=== PATIENT | female | born 1955 | race Caucasian/White ===

== ENCOUNTER 2021-02-07 16:08 | Observation (INO) | payer OTHER ==
[2021-02-07] MEDS ORDERED: Sodium Chloride 0.9% 10 ML Syringe FLUSH PRN (16:27)
[2021-02-07] MEDS ORDERED: Sodium Chloride 0.9% 1,000 ML IV ONE (16:34)
--- NOTE | 2021-02-07 17:00 | EDM.PDOC ---
ED HPI GENERAL MEDICAL PROBLEM - General Chief Complaint: Gastrointestinal Problem Stated Complaint: RLQ PAIN Time Seen by Provider: 02/07/21 16:30 Source of Information: Reports: Patient History Limitations: Reports: No Limitations - History of Present Illness INITIAL COMMENTS - FREE TEXT/NARRATIVE: 65 YO WF PRESENTS TO ER WITH COMPLAINTS OF CONSTIPATION X 3 DAYS. PT REPORTS T RAJ SHE DEVELOPED SOME RLQ ABDOMINAL PAIN PROMPTING ER EVALUATION. PT REPORTS SHE TYPICALLY TAKES MIRALAX FOR HER CONSTIPATION DAILY BUT CAN'T REMEMBER IF SHE TOOK IT THE LAST FEW DAYS. PT REPORTS SHE TOOK MAGNESIUM CITRATE TODAY AND PROCEEDED TO VOMIT. PT REPORTS DECREASED APPETITE. PT DENIES FEVER/CHILLS, NO DIARRHEA OR BLOODY STOOLS, NO DYSURIA OR URINARY FREQUENCY/URGENCY. PT REPORTS NO BOWEL MOVEMENT X 2-3 DAYS. PT REPORTS PASSING GAS AND INCREASED BURPING OVER THE LAST FEW DAYS. Duration: Day(s): (3) Location: Reports: Abdomen Quality: Reports: Ache, Pressure Severity: Mild Improves with: Reports: None Worsens with: Reports: None Associated Symptoms: Reports: Nausea/Vomiting. Denies: Chest Pain, Diaphoresis, Fever/Chills, Malaise, Shortness of Breath, Syncope, Weakness Treatments SAW MAN: Reports: Other (see below) Other Treatments SAW MAN: stool softeners right lower side Pain Score (Numeric/FACES): 4 - Related Data Allergies Allergy/AdvReac Type Severity Reaction Status Date / Time No Known Drug Allergies Allergy NKDA Verified 02/07/21 16:35 Home Meds: Home Meds Calcium Carbonate [Calcium] 600 mg PO DAILY 04/21/15 [History] Ketotifen Fumarate [Allergy Eye Drops] 1 drop EYEBOTH ASDIRECTED 04/21/15 [History] Levothyroxine Sodium [Synthroid] 100 mcg PO ACBREAKFAST 04/21/15 [History] Multivitamin [Daily Multiple Vitamin] 1 tab PO DAILY 04/21/15 [History] ED ROS GENERAL - Review of Systems Review Of Systems: See Below Constitutional: Reports: No Symptoms HEENT: Reports: No Symptoms Respiratory: Reports: No Symptoms Cardiovascular: Reports: No Symptoms Endocrine: Reports: No Symptoms GI/Abdominal: Reports: Abdominal Pain, Constipation, Nausea, Vomiting : Reports: No Symptoms Musculoskeletal: Reports: No Symptoms Skin: Reports: No Symptoms Neurological: Reports: No Symptoms Psychiatric: Reports: No Symptoms Hematologic/Lymphatic: Reports: No Symptoms Immunologic: Reports: No Symptoms ED EXAM, GI/ABD - Physical Exam Exam: See Below Exam Limited By: No Limitations General Appearance: Alert, WD/WN, No Apparent Distress Head: Atraumatic, Normocephalic Neck: Normal Inspection, Supple, Non-Tender, Full Range of Motion Respiratory/Chest: No Respiratory Distress, Lungs Clear, Normal Breath Sounds, No Accessory Muscle Use, Chest Non-Tender Cardiovascular: Normal Peripheral Pulses, Regular Rate, Rhythm, No Edema, No Gallop, No JVD, No Murmur, No Rub GI/Abdominal Exam: Normal Bowel Sounds, Soft, No Organomegaly, No Distention, No Abnormal Bruit, No Mass, Pelvis Stable, Tender (RLQ TENDERNESS) Back Exam: Normal Inspection, Full Range of Motion, NT Extremities: Normal Inspection, Normal Range of Motion, Non-Tender, Normal Capillary Refill, No Pedal Edema Neurological: Alert, Oriented, CN II-XII Intact, Normal Cognition, Normal Gait, No Motor/Sensory Deficits Psychiatric: Normal Affect, Normal Mood Skin Exam: Warm, Dry, Intact, Normal Color, No Rash Lymphatic: No Adenopathy Course - Vital Signs Last Recorded V/S: Last Vital Signs Temp 97.2 F 02/07/21 17:38 Pulse 60 02/07/21 17:38 Resp 16 02/07/21 17:38 BP 138/66 02/07/21 17:38 Pulse Ox 98 02/07/21 17:38 - Orders/Labs/Meds Orders: Active Orders 24 hr Category Date Time Status Peripheral IV Care [RC] . DIRECTED Care 02/07/21 16:28 Active Sodium Chloride 0.9% [Normal Saline] 50 ml Med 02/07/21 17:15 Active IV ASDIRECTED Sodium Chloride 0.9% [Saline Flush] Med 02/07/21 16:27 Active 10 ml FLUSH Q8HR PRN Peripheral IV Insertion Adult [OM.PC] Routine Oth 02/07/21 16:27 Ordered Medication Orders Sodium Chloride (Normal Saline) 50 mls @ 200 mls/hr IV ASDIRECTED [facility] Last Admin: 02/07/21 17:18 Dose: 200 mls/hr Documented by: Sodium Chloride (Sodium Chloride 0.9% 10 Ml Syringe) 10 ml FLUSH Q8HR PRN PRN Reason: keep vein open Labs: Laboratory Tests 02/07/21 02/07/21 02/07/21 Range/Units 16:48 16:48 16:52 WBC 10.74 H (5.00-10.00) 10^3/uL RBC 4.49 (3.80-5.50) 10^6/uL Hgb 13.8 (12.0-16.0) g/dL Hct 42.4 (37.0-47.0) % MCV 94.4 H (82.0-92.0) fL MCH 30.7 (27.0-31.0) pg MCHC 32.5 (32.0-36.0) g/dL RDW 12.3 (11.5-14.5) % Plt Count 183 (150-400) 10^3/uL MPV 10.4 (7.4-10.4) fL Immature Gran % (Auto) 0.1 (0.0-5.0) % Neut % (Auto) 86.8 H (50.0-70.0) % Lymph % (Auto) 6.5 L (20.0-40.0) % Harmon % (Auto) 6.5 (2.0-8.0) % Eos % (Auto) 0.0 L (1.0-3.0) % Baso % (Auto) 0.1 (0.0-1.0) % Neut # (Auto) 9.32 H (2.50-7.00) 10^3/uL Lymph # (Auto) 0.70 L (1.00-4.00) 10^3/uL Harmon # (Auto) 0.70 (0.10-0.80) 10^3/uL Eos # (Auto) 0.00 L (0.10-0.30) 10^3/uL Baso # (Auto) 0.01 (0.00-0.10) 10^3/uL Immature Gran # (Auto) 0.01 (0.00-0.50) 10^3/uL Sodium 125 L (136-145) mmol/L Potassium 3.4 L (3.5-5.1) mmol/L Chloride 100 (98-107) mmol/L Carbon Dioxide 26.4 (21.0-32.0) mmol/L Anion Gap 2.0 L (5-15) mmol/L BUN 26 H (7-18) mg/dL Creatinine 0.82 (0.51-1.17) mg/dL Est Cr Clr Drug Dosing 67.59 mL/min Estimated GFR (MDRD) > 60 mL/min Glucose 109 (70-140) mg/dL Calcium 9.0 (8.7-10.3) mg/dL Total Bilirubin 0.9 (0.2-1.0) mg/dL AST 41 H (15-37) U/L ALT 33 (14-63) U/L Alkaline Phosphatase 87 (46-116) U/L Total Protein 7.6 (6.4-8.2) g/dL Albumin 4.18 (3.40-5.00) g/dL Lipase 59 L (73-393) U/L Specimen Type Urinvoid Urine Color Yellow (YELLOW) Urine Appearance Slightly cloudy H (CLEAR) Urine pH 6.0 (5.0-9.0) Ur Specific [place] 1.020 (1.005-1.030) Urine Protein Trace H (NEGATIVE) mg/dL Urine Glucose (UA) Negative (NEGATIVE) mg/dL Urine Ketones 40 H (NEGATIVE) mg/dL Urine Occult Blood Moderate H (NEGATIVE) Urine Nitrite Negative (NEGATIVE) Urine Bilirubin Negative (NEGATIVE) Urine Urobilinogen 0.2 (0.2-1.0) E.U./dL Ur Leukocyte Esterase Small H (NEGATIVE) Urine RBC 5-10 H (0-5) /HPF Urine WBC 50-75 H (0-5) /HPF Ur Epithelial Cells Few /LPF Urine Bacteria Few (NONE TO FEW) /HPF Meds: Medications Generic Name Dose Route Start Last Admin Trade Name Freq PRN Reason Stop Dose Admin Sodium Chloride 50 mls @ 200 mls/hr 02/07/21 17:15 02/07/21 17:18 Normal Saline IV 200 mls/hr ASDIRECTED KEI Administration Sodium Chloride 10 ml 02/07/21 16:27 Sodium Chloride 0.9% 10 Ml Syringe FLUSH Q8HR PRN keep vein open Discontinued Medications Generic Name Dose Route Start Last Admin Trade Name Freq PRN Reason Stop Dose Admin Sodium Chloride 1,000 mls @ 999 mls/hr 02/07/21 16:34 02/07/21 16:54 Normal Saline IV 02/07/21 17:34 999 mls/hr .BOLUS ONE Administration Iopamidol 75 ml 02/07/21 17:10 02/07/21 17:18 Iopamidol 755 Mg/Ml 75 Ml Bottle IVPUSH 02/07/21 17:11 75 ml ONETIME ONE Administration Ondansetron HCl Confirm 02/07/21 17:45 02/07/21 17:51 Ondansetron 4 Mg/2 Ml Sdv Administered 02/07/21 17:46 Not Given Dose 4 mg .ROUTE .STK-MED ONE Ondansetron HCl 4 mg 02/07/21 17:50 02/07/21 17:51 Ondansetron 4 Mg/2 Ml Sdv IVPUSH 02/07/21 17:51 4 mg ONETIME ONE Administration - Radiology Interpretation Free Text/Narrative:: CT ABD/PELVIS- 2MM KIDNEY STONE IN RIGHT UVJ Departure - Departure Time of Disposition: 18:21 Disposition: Refer to Observation Condition: Fair Clinical Impression: Hyponatremia, Kidney stone on right side Urinary tract infection Qualifiers: Urinary tract infection type: site unspecified Hematuria presence: without hematuria Qualified Code(s): N39.0 - Urinary tract infection, site not specified - Discharge Information Referrals: Sam Calderón MD [Primary Care Provider] - Forms: ED Department Discharge Sepsis Event Note (ED) - Evaluation Sepsis Screening Result: No Definite Risk - Focused Exam Vital Signs: Vital Signs Temp Pulse Resp BP Pulse Ox 02/07/21 17:38 97.2 F 60 16 138/66 98 02/07/21 16:21 97.1 F 61 16 125/66 97 - My Orders Last 24 Hours: My Active Orders 02/07/21 16:27 Sodium Chloride 0.9% [Saline Flush] 10 ml FLUSH Q8HR PRN Peripheral IV Insertion Adult [OM.PC] Routine 02/07/21 16:28 Peripheral IV Care [RC] . DIRECTED 02/07/21 17:15 Sodium Chloride 0.9% [Normal Saline] 50 ml IV ASDIRECTED - Assessment/Plan Last 24 Hours: My Active Orders 02/07/21 16:27 Sodium Chloride 0.9% [Saline Flush] 10 ml FLUSH Q8HR PRN Peripheral IV Insertion Adult [OM.PC] Routine 02/07/21 16:28 Peripheral IV Care [RC] . DIRECTED 02/07/21 17:15 Sodium Chloride 0.9% [Normal Saline] 50 ml IV ASDIRECTED Assessment:: 1. KIDNEY STONE IN RIGHT UVJ 2. HYPONATREMIA 3. UTI Plan: 1. ADMIT TO MEDICINE- DR SAM JOHNSON ACCEPTED 1814-OBSERVATION 2. TORADOL 30MG IV Q6 PRN PAIN 3. HYDROCODONE 5/325 Q4-6 NEEDED FOR PAIN 4. ROCEPHIN 1G IV QD FOR UTI/SEPTIC STONE 5. IVF FOR HYPONATREMIA-REPEAT LABS IN AM 6. URINE FOR CULTURE
[2021-02-07] MEDS ORDERED: Iopamidol 755 Mg/ML 75 ML Bottle IVPUSH ONE (17:10)
[2021-02-07 17:14] LABS: CHLORIDE,CL 100 mmol/L (98-107); SODIUM,NA 125 mmol/L (136-145)
[2021-02-07] MEDS ORDERED: Sodium Chloride 0.9% 50 ML IV SCH (17:15)
[2021-02-07] MEDS ORDERED: Ondansetron 4 MG/2 ML SDV ONE (17:45)
[2021-02-07] MEDS ORDERED: Ondansetron 4 MG/2 ML SDV IVPUSH ONE (17:50)
--- NOTE | 2021-02-07 18:00 | CT ---
[id number] CT/CT Abdomen Pelvis W IV EXAM: CT Abdomen Pelvis W IV CLINICAL DATA: RIGHT LOWER QUADRANT PAIN COMPARISON: No previous similar exam is available. FINDINGS: A 3 mm calculus is seen at the right UVJ on image 120, series 2 This results in moderate right-sided hydroureteronephrosis There is a small amount of edema around the right kidney There is another tiny calculus in the lower pole of the right kidney on image 64, series 2. The liver and spleen, aorta, adrenals, pancreas, and left kidney are unremarkable The gallbladder is not distended The pelvis shows no mass or adenopathy. IMPRESSION: 3 MM CALCULUS AT RIGHT UVJ MODERATE RIGHT-SIDED HYDROURETERONEPHROSIS Norm Lima MD 02/07/21 [id number] Thank you for allowing us to participate in the care of your patient.
[2021-02-07] MEDS ORDERED: Ketorolac 30 MG/ML SDV IVPUSH ONE (18:11)
[2021-02-07] MEDS ORDERED: cefTRIAXone 1 GM Vial IVPUSH ONE (18:11)
[2021-02-07] MEDS ORDERED: Ketorolac 30 MG/ML SDV IVPUSH PRN (18:24)
[2021-02-07] MEDS ORDERED: Acetaminophen/HYDROcodone 325-5 MG Tab PO PRN (18:24)
[2021-02-07] MEDS ORDERED: Ondansetron 4 MG/2 ML SDV IV PRN (18:24)
[2021-02-07] MEDS: Sodium Chloride 0.9% 1,000 ML IV SCH (19:46)
[2021-02-08] MEDS: Sodium Chloride 0.9% 1,000 ML IV SCH (03:57)
[2021-02-08 06:32] VITALS: BP 93/42; PULSE 54
[2021-02-08 08:00] LABS: ANION GAP 10.1 mmol/L (5-15); CHLORIDE,CL 108 mmol/L (98-107); SODIUM,NA 140 mmol/L (136-145)
--- NOTE | 2021-02-08 16:10 | DISCH ---
HISTORY OF PRESENT ILLNESS: This is a 65-year-old female who is being seen today on hospital rounds. She presented to the emergency room yesterday with 3 days of constipation. She also developed some right lower quadrant abdominal pain prompting ER evaluation. The patient reports she usually takes MiraLAX for her constipation daily, however, she was unclear whether she had taken it the last few days. She did take some magnesium citrate yesterday and proceeded to vomit. The patient was found to be hyponatremic and mildly hypokalemic. She was given 0.9% normal saline at 125 cc an hour since admission. She did appear to have a mild urinary tract infection for which she received cephalexin 1 g IV in the emergency room. Toradol was ordered, however, she has not taken any. She also had hydrocodone ordered as well. Lab work looks stable today with a normal sodium of 140. Her potassium has improved to 3.6. CT scan confirmed a 3 mm calculus in the right UV junction. She has had her urine strain since admission and she has not passed the stone, however, she does not have any pain. She does have moderate right-sided hydroureteronephrosis as evidenced on CT scan. PHYSICAL EXAMINATION: VITAL SIGNS: Temperature is 97.5, pulse 54, respirations 16, blood pressure 93/42, O2 saturation is 98% on room air. SKIN: Warm and dry to touch. CARDIAC: S1, S2 to be normal. Rate and rhythm are regular. No murmur, click, or gallop is auscultated. LUNGS: Clear. ABDOMEN: Soft, nontender. Bowel sounds present in all 4 quadrants. EXTREMITIES: There is no pedal edema. IMPRESSION: 1. A 3 mm calculus seen at the right UV junction with mild hydroureteronephrosis. She will continue straining her urine upon discharge. She does not have the pain that she presented with yesterday. 2. Urinary tract infection. This is mild. She did receive ceftriaxone 1 g IV in the emergency room. She will be discharged with cephalexin 500 mg t.i.d. for 7 days. She will follow up with Dr. Wallace in the clinic on Tuesday, February 09, 2021. /[id number]/MODL
--- NOTE | 2021-02-09 07:12 | DISCH ---
ADDENDUM: I did request that the patient continue to strain her urine and bring any stone material that was passed in her urine. I also requested she hold off on filling the cephalexin prescription until after she sees Dr. Sarah in the clinic tomorrow. A followup UA will be performed at her appointment tomorrow. I urged her to call the clinic or hospital if she had any questions. She did receive 1 g of Rocephin in the emergency room. /[id number]/MODL
== END 2021-02-08 11:03 | disposition home or self-care (01) ==
LOC: KA.ED 16:08 → KA.MS 18:23
PROVIDERS: ADMIT Physician Assistant Medical; ATTEND Internal Medicine
DX: N13.2 Hydronephrosis with renal and ureteral calculous obstruction (principal); N39.0 Urinary tract infection, site not specified; E87.1 Hypo-osmolality and hyponatremia; E87.6 Hypokalemia; K59.00 Constipation, unspecified; Z20.822 Contact with and (suspected) exposure to COVID-19
CPT/HCPCS: 36415; 74177; 80048; 80053; 81001; 83690; 85025; 87086; 87635; 96374; 96375; 99284; G0378; J0696; J1885; J2405; J7030; Q9967; 99220; U0002

== ENCOUNTER 2023-02-09 07:10 | Emergency (ER) | payer MEDICARE ==
[2023-02-09 07:19] VITALS: BP 123/81; PULSE 69
[2023-02-09] MEDS ORDERED: Dexamethasone/Tobramycin 0.1-0.3% Ophth Susp 2.5 ML Bottle EYEBOTH SCH (07:45)
== END 2023-02-09 07:51 | disposition home or self-care (01) ==
LOC: KA.ED 07:10
DX: H10.33 Unspecified acute conjunctivitis, bilateral (principal); Z88.2 Allergy status to sulfonamides; Z79.899 Other long term (current) drug therapy
CPT/HCPCS: 99283